=== PATIENT | female | born 1975 | race Caucasian/White ===

== ENCOUNTER 2016-07-12 11:51 | Day surgery (SDC) | payer BC ==
[~2016-07-12] VITALS: Ht 157.5 cm; Wt 71.1 kg
[2016-07-12 13:24] VITALS: Ht 157.5 cm; Wt 71.1 kg
[2016-07-12] MEDS ORDERED: HYDR12.58 PO (13:35)
[2016-07-12] MEDS ORDERED: TRAZ100T15 PO (13:35)
[2016-07-12] MEDS ORDERED: DICY10CA60 PO (13:35)
[2016-07-12] MEDS ORDERED: LEVO50TA74 PO (13:35)
[2016-07-12 15:29] VITALS: BP 139/76; PULSE 66; RESP 20
[2016-07-12] MEDS ORDERED: FENTAnyl 50 MCG/ML VIAL ONE (15:42)
[2016-07-12] MEDS ORDERED: MIDAZOLAM 1 MG/ML 2 ML INJ ONE (15:42)
[2016-07-12] MEDS ORDERED: PROPOFOL 20 ML ONE (15:42)
[2016-07-12 16:41] VITALS: BP 116/64; PULSE 61; RESP 16
--- NOTE | 2016-07-13 06:29 | GILP ---
DATE OF PROCEDURE: PROCEDURE: Colonoscopy to the cecum, with biopsies. BRIEF HISTORY AND INDICATIONS: The patient is being evaluated for changes in bowel habit, alternati ng diarrhea and constipation. PREMEDICATION: Monitored anesthesia care by the anesthesiologist. SURGEON: Mich Oliveira MD INSTRUMENT USED: Olympus colonoscope. PREPARATION: Adequate. TECHNIQUE: After informed consent, with the patient/relatives understanding the procedure, its indic ations potential risks and complications, including but not limited to: allergic reaction, bleeding, perforation, infection, missed lesions and after all pertinent questions were answered to the patie nt's satisfaction, the patient/relatives signed the witnessed informed consent. Following this, premedication was administered slowly IV push by under careful cardiovascular and re spiratory monitoring with pulse oximetry, automatic blood pressure and linotypist. Once the sedativ e effect was achieved, the patient was placed in the left lateral decubitus position, digital rectal examination was performed. The colonoscope was then introduced and advanced under visual control th roughout all segments of the colon including: the rectum, sigmoid, descending colon, splenic flexure , transverse colon, hepatic flexure, ascending colon and finally reaching the cecum which was clearl y identified by transillumination, finger indentation and the ileocecal valve. Careful examination o f the mucosa of the lower gastrointestinal tract both on insertion as well as withdrawal of the inst rument disclosed the following findings: FINDINGS: Rectal Examination: No evidence of perirectal disease, no masses. Colonic Mucosa: The colonic mucosa is essentially unremarkable, with no mucosal abnormalities. The terminal ileum was entered and appears unremarkable as well. Random biopsies were obtained of t he right and left side of the colon to rule out microscopic lymphocytic or collagenous colitis. Mod erate sized internal hemorrhoids were noted on withdrawal of the instrument through the anal canal. The instrument was then withdrawn, the patient tolerated the procedure well and was transferred out of the Endoscopy Suite awake and in good condition to continue recovery under observation. IMPRESSION: 1. Normal colonic mucosa. Biopsies were obtained to rule out microscopic lymphocytic or collagenou s colitis. 2. Normal terminal ileum. 3. Moderate sized internal hemorrhoids. PLAN: The patient will follow up as an outpatient and further recommendation will depend on review of biopsies, as well as the patient's clinical course. Dictated By: MICH OLIVEIRA MS/NICK Conf#: [id number] [facility]#: [id number]
--- NOTE | 2016-07-13 06:37 | GILP ---
DATE OF PROCEDURE: 07/12/2016 DATE: 07/12/2016 NAME OF PROCEDURE: Esophagogastroduodenoscopy with biopsies. SURGEON: Mich Oliveira MD. HISTORY AND INDICATIONS: The patient is being evaluated for reflux symptoms and dyspepsia. PREMEDICATION: Monitored anesthesia care by anesthesiologist. INSTRUMENT USED: Olympus endoscope. TECHNIQUE: After informed consent, with the patient/relatives understanding the procedure, its indic ations, potential risks and complications, including but not limited to: allergic reaction, bleeding , perforation or infection, and after all pertinent questions were answered to the patients satisfac tion, the patient/relatives signed witnessed informed consent. Following this, premedication was administered slowly IV push under careful cardiovascular and respi ratory monitoring with pulse oximetry, automatic blood pressure and monitoring engineer. Once the sedative effect was achieved the patient was place in the left lateral decubitus, the panen doscope was introduced and advanced under visual control. Careful examination of the upper gastrointestinal tract, both on insertion as well as withdrawal of the instrument disclosed the following findings: ESOPHAGUS: The esophagus shows a 6 mm nodule in the proximal esophagus, which was biopsied and esse ntially an excisional biopsy was obtained. The remainder of the esophagus unremarkable. STOMACH: Upon entrance to the stomach, air was insufflated, and the gastric sarabia distended normall y. There was erythema and edema of the mucosa to a moderate degree. Biopsies were obtained to rule out H. pylori infection. PYLORUS: The pylorus appears patent and within normal limits, with no evidence of gastric outlet obs truction. DUODENUM: The duodenal mucosa was carefully examined in the duodenal bulb as well as the second port ion of the duodenum and appears unremarkable with no evidence of duodenitis, ulcer or neoplasm. The instrument was then withdrawn, the patient tolerated the procedure well and was transfer out of the endoscopy suite awake, and in good condition to continue recovery under observation IMPRESSION: 1. A 6 mm nodule proximal esophagus, post-excisional biopsy. 2. Gastritis, rule out Helicobacter pylori infection, biopsies obtained. PLAN: The patient will be followed up as an outpatient. PPIs will be prescribed. Pathology will b e reviewed as soon as available. Further recommendation will depend on the patient's clinical cours e as well as review of biopsies. Dictated By: MICH OLIVEIRA MS/NICK Conf#: [id number] [facility]#: [id number]
== END 2016-07-12 16:36 | disposition home or self-care (01) ==
LOC: GIL 11:51
PROVIDERS: ATTEND Internal Medicine Gastroenterology
DX: R19.4 Change in bowel habit (principal); K29.70 Gastritis, unspecified, without bleeding; K64.8 Other hemorrhoids; I10 Essential (primary) hypertension; E03.9 Hypothyroidism, unspecified; F41.9 Anxiety disorder, unspecified
CPT/HCPCS: 43239; 45380; 84703; 88305; 88312; J2250; J3010; Z7610